=== PATIENT | female | born 1965 | race Caucasian/White ===

== ENCOUNTER 2018-01-26 08:46 | Day surgery (SDC) | payer MEDICAID ==
[2018-01-26] MEDS ORDERED: LACTATED RINGERS 1,000 ML IV SCH (09:15)
[2018-01-26] MEDS ORDERED: SIMETHICONE 40 MG/0.6 ML 30ML ONE (09:48)
[2018-01-26] MEDS ORDERED: FENTANYL CITRATE/PF 50MCG/ML 2ML VIAL ONE (10:20)
[2018-01-26] MEDS ORDERED: MIDAZOLAM HCL 2 MG/2 ML VIAL ONE ×4 (10:21→11:16)
[2018-01-26] MEDS ORDERED: PROPOFOL 200MG/20ML VIAL IV ONE ×2 (10:22→11:42)
[2018-01-26] MEDS ORDERED: DIPHENHYDRAMINE 50MG/ML VIAL ONE (10:22)
[2018-01-26] MEDS ORDERED: LIDOCAINE HCL/PF 1% 10 MG/ML 5ML VIAL ONE (10:22)
[2018-01-26] MEDS ORDERED: BACL-141 PO (11:43)
[2018-01-26] MEDS ORDERED: ASPI-1159 PO (11:43)
[2018-01-26] MEDS ORDERED: IBUP-2029 PO (11:43)
[2018-01-26] MEDS ORDERED: FAMC500T3 PO (11:43)
[2018-01-26] MEDS ORDERED: ZOLP10TA2 PO (11:43)
[2018-01-26] MEDS ORDERED: DULO60CA44 PO (11:43)
[2018-01-26] MEDS ORDERED: ARIP15TA2 PO (11:43)
[2018-01-26] MEDS ORDERED: CLON0.5T PO (11:43)
[2018-01-26] MEDS ORDERED: LISI-604 PO (11:43)
[2018-01-26] MEDS ORDERED: VERA240C2 PO (11:43)
[2018-01-26] MEDS ORDERED: LAM1 PO (11:43)
[2018-01-26] MEDS ORDERED: ATOR80TA PO (11:43)
== END 2018-01-26 13:05 | disposition home or self-care (01) ==
LOC: OR 08:46
PROVIDERS: ATTEND Internal Medicine Gastroenterology
DX: Z09 Encounter for follow-up examination after completed treatment for conditions other than malignant neoplasm (principal); K63.5 Polyp of colon; K57.30 Diverticulosis of large intestine without perforation or abscess without bleeding; K21.9 Gastro-esophageal reflux disease without esophagitis; K29.50 Unspecified chronic gastritis without bleeding; K29.80 Duodenitis without bleeding; K44.9 Diaphragmatic hernia without obstruction or gangrene; E78.00 Pure hypercholesterolemia, unspecified; I10 Essential (primary) hypertension; F41.9 Anxiety disorder, unspecified; F32.9 Major depressive disorder, single episode, unspecified; Z86.010 Personal history of colon polyps; Z79.82 Long term (current) use of aspirin; Z79.1 Long term (current) use of non-steroidal anti-inflammatories (NSAID); Z87.891 Personal history of nicotine dependence; Z88.5 Allergy status to narcotic agent; Z88.8 Allergy status to other drugs, medicaments and biological substances; Z90.710 Acquired absence of both cervix and uterus; Z79.899 Other long term (current) drug therapy
CPT/HCPCS: 43239; 45380; 88305; 88312; 88313; C1893; J1200; J2250; J3010; J3490; J7120; J2704